=== PATIENT | male | born 1955 | race Caucasian/White ===

== ENCOUNTER 2017-02-14 08:37 | Outpatient (CLI) | payer OTHER ==
[2017-02-14] MEDS ORDERED: GADOBUTROL 7.5 MMOL/7.5 ML VIAL IVP ONE (09:45)
== END 2017-02-14 08:38 | disposition home or self-care (01) ==
DX: H49.00 Third [oculomotor] nerve palsy, unspecified eye (principal)
CPT/HCPCS: 70553; A9585

== ENCOUNTER 2017-05-30 10:07 | Outpatient (CLI) | payer OTHER ==
[2017-05-30 12:59] LABS: ALBUMIN/GLOBULIN RATIO 1.8 (1.0-2.2); BILIRUBIN,TOTAL 0.6 mg/dL (0.2-1.0); CALCIUM 8.4 mg/dL (8.5-10.3); MAGNESIUM 1.9 mg/dL (1.7-2.8); POTASSIUM 4.1 mmol/L (3.5-5.0); TOTAL PROTEIN 5.8 g/dL (6.7-8.2)
[2017-06-01 11:56] LABS: TEST RESULT REPORT (())
[2017-06-01 16:47] LABS: HDL LARGE 4202 nmol/L (4334-10815); LDL MEDIUM 164 nmol/L (167-465); LDL PARTICLE NUMBER 873 nmol/L (1016-2185); LDL PATTERN B Pattern (A); LDL PEAK SIZE 212.1 Angstrom (> OR = 218.2); LDL SMALL 205 nmol/L (123-441)
== END 2017-05-30 10:08 | disposition home or self-care (01) ==
LOC: LAB.WCP 10:07
PROVIDERS: ATTEND Specialist
DX: I25.10 Atherosclerotic heart disease of native coronary artery without angina pectoris (principal); E10.9 Type 1 diabetes mellitus without complications; I34.0 Nonrheumatic mitral (valve) insufficiency; G47.62 Sleep related leg cramps; G47.33 Obstructive sleep apnea (adult) (pediatric); R00.1 Bradycardia, unspecified
CPT/HCPCS: 36415; 80053; 81599; 82465; 83704; 83718; 83735; 84478

== ENCOUNTER 2017-10-24 08:00 | Outpatient (CLI) | payer OTHER | END 2017-10-24 08:01 | disposition home or self-care (01) | LOC: LAB.WCP 08:00 | PROVIDERS: ATTEND Urology | DX: R39.9 Unspecified symptoms and signs involving the genitourinary system (principal) | CPT/HCPCS: 36415; 84153 ==

== ENCOUNTER 2017-11-28 05:57 | Day surgery (SDC) | payer OTHER ==
[2017-11-28] MEDS ORDERED: LACTATED RINGERS 1,000 ML IV ONE (07:02)
[2017-11-28] MEDS ORDERED: MIDAZOLAM 2 MG/2 ML VIAL IVP ONE (07:20)
[2017-11-28] MEDS ORDERED: fentaNYL 100 MCG/2 ML VIAL IVP ONE (07:20)
[2017-11-28 08:37] VITALS: BP 119/67
== END 2017-11-28 05:58 | disposition home or self-care (01) ==
LOC: SDS 05:57
PROVIDERS: ATTEND Surgery
PROC: 0DJD8ZZ Inspection of Lower Intestinal Tract, Via Natural or Artificial Opening Endoscopic (ICD-10-PCS; principal; 2017-11-28 07:30)
DX: Z12.11 Encounter for screening for malignant neoplasm of colon (principal); K64.8 Other hemorrhoids; E11.9 Type 2 diabetes mellitus without complications; Z79.4 Long term (current) use of insulin; Z96.41 Presence of insulin pump (external) (internal); E78.5 Hyperlipidemia, unspecified; I25.10 Atherosclerotic heart disease of native coronary artery without angina pectoris; Z79.02 Long term (current) use of antithrombotics/antiplatelets; G47.30 Sleep apnea, unspecified
CPT/HCPCS: 45378; J7120

== ENCOUNTER 2018-04-10 11:17 | Outpatient (CLI) | payer OTHER | END 2018-04-10 11:18 | disposition home or self-care (01) | LOC: SC 11:17 | PROVIDERS: ATTEND Internal Medicine Pulmonary Disease | DX: G47.33 Obstructive sleep apnea (adult) (pediatric) (principal); G47.61 Periodic limb movement disorder | CPT/HCPCS: 99203; 99212 ==

== ENCOUNTER 2018-04-24 08:00 | Outpatient (CLI) | payer OTHER ==
[2018-04-24 13:30] LABS: ALBUMIN 3.3 g/dL (3.2-5.5); ALBUMIN/GLOBULIN RATIO 1.3 (1.0-2.2); BILIRUBIN,TOTAL 0.9 mg/dL (0.2-1.0); CALCIUM 8.7 mg/dL (8.5-10.3); CREATININE 0.9 mg/dL (0.6-1.2); MAGNESIUM 1.7 mg/dL (1.7-2.8); TOTAL PROTEIN 5.8 g/dL (6.7-8.2)
== END 2018-04-24 08:01 | disposition home or self-care (01) ==
LOC: LAB.WCP 08:00
PROVIDERS: ATTEND Specialist
DX: E78.5 Hyperlipidemia, unspecified (principal); I49.3 Ventricular premature depolarization
CPT/HCPCS: 36415; 80053; 81599; 82465; 83525; 83704; 83735; 84478

== ENCOUNTER 2018-05-13 19:42 | Outpatient (CLI) | payer OTHER | END 2018-05-13 19:43 | disposition home or self-care (01) | LOC: SC 19:42 | PROVIDERS: ATTEND Internal Medicine Pulmonary Disease | DX: G47.31 Primary central sleep apnea (principal); G47.33 Obstructive sleep apnea (adult) (pediatric); G47.61 Periodic limb movement disorder | CPT/HCPCS: 95811 ==

== ENCOUNTER 2018-06-27 11:09 | Outpatient (CLI) | payer OTHER | END 2018-06-27 11:10 | disposition home or self-care (01) | LOC: SC 11:09 | PROVIDERS: ATTEND Nurse Practitioner Family | DX: G47.33 Obstructive sleep apnea (adult) (pediatric) (principal); G47.61 Periodic limb movement disorder | CPT/HCPCS: 99212; 99215 ==

== ENCOUNTER 2018-06-27 22:45 | Outpatient (CLI) | payer OTHER | END 2018-06-27 22:46 | disposition home or self-care (01) | LOC: LAB.WCP 22:45 | PROVIDERS: ATTEND Family Medicine | DX: K52.9 Noninfective gastroenteritis and colitis, unspecified (principal) | CPT/HCPCS: 87177; 87209 ==

== ENCOUNTER 2018-07-05 14:36 | Outpatient (CLI) | payer OTHER | END 2018-07-05 14:37 | disposition home or self-care (01) | LOC: LAB.WCP 14:36 | PROVIDERS: ATTEND Physician Assistant | DX: R19.5 Other fecal abnormalities (principal) | CPT/HCPCS: 81599; 83630; 87045; 87046; 87329; 87493 ==

== ENCOUNTER 2018-08-07 10:18 | Outpatient (CLI) | payer OTHER | END 2018-08-07 10:19 | disposition home or self-care (01) | LOC: SC 10:18 | PROVIDERS: ATTEND Internal Medicine Pulmonary Disease | DX: G47.31 Primary central sleep apnea (principal) | CPT/HCPCS: 99212; 99213 ==

== ENCOUNTER 2018-08-09 08:24 | Outpatient (CLI) | payer OTHER ==
[2018-08-09 14:09] LABS: ALBUMIN 3.7 g/dL (3.2-5.5); ALBUMIN/GLOBULIN RATIO 1.9 (1.0-2.2); BILIRUBIN,TOTAL 0.9 mg/dL (0.2-1.0); CALCIUM 9.1 mg/dL (8.5-10.3); TOTAL PROTEIN 5.6 g/dL (6.7-8.2)
[2018-08-12 00:36] LABS: HDL LARGE 4178 nmol/L (3382-9376); LDL PARTICLE NUMBER 824 nmol/L (732-2035); LDL PATTERN B Pattern (A); LDL SMALL 172 nmol/L (85-473)
== END 2018-08-09 08:25 | disposition home or self-care (01) ==
LOC: LAB.WCP 08:24
PROVIDERS: ATTEND Specialist
DX: I25.10 Atherosclerotic heart disease of native coronary artery without angina pectoris (principal); E10.9 Type 1 diabetes mellitus without complications; I49.3 Ventricular premature depolarization; E78.2 Mixed hyperlipidemia
CPT/HCPCS: 36415; 80053; 81599; 82465; 83704; 83718; 83735; 84478

== ENCOUNTER 2018-12-12 13:09 | Outpatient (CLI) | payer OTHER ==
--- NOTE | 2018-12-12 16:23 | XRAY Report ---
Reason: DYSPHAGIA, UNSPECIFIED Procedure Date: 12/12/2018 Accession Number: [id number] / [id number] Procedure: FL - Modified Barium Swallow W/SP CPT Code: FULL RESULT: EXAM: MODIFIED BARIUM SWALLOW EXAM DATE: 12/12/2018 12:00 PM. CLINICAL HISTORY: Dysphagia, unspecified. COMPARISON: None. TECHNIQUE: Under the direction of speech pathology, patient swallowed various consistencies of barium under lateral fluoroscopic observation of the neck. Fluoroscopy Time: 49 seconds. Number of Images: 13. FINDINGS: Swallowing Mechanism: Normal oral phase and swallowing reflex. Airway Protection: Normal epiglottic motion. No episodes of tracheal penetration or aspiration with all consistencies of barium. Pharynx: Normal. No significant vallecular or piriform sinus contrast pooling. Other: None. IMPRESSION: Normal modified barium swallow. No aspiration identified. Given patient's symptomatology of regurgitation of food without taste of acid, recommend esophagram specifically looking for diverticulum. RADIA
== END 2018-12-12 13:10 | disposition home or self-care (01) ==
LOC: DI 13:09
PROVIDERS: ATTEND Family Medicine
DX: R13.10 Dysphagia, unspecified (principal)
CPT/HCPCS: 74230

== ENCOUNTER 2019-01-16 08:00 | Outpatient (CLI) | payer OTHER ==
--- NOTE | 2019-01-16 13:25 | XRAY Report ---
Reason: DYSPHAGIA,PHARYNGOESOPHAGEAL PHASE Procedure Date: 01/16/2019 Accession Number: [id number] / [id number] Procedure: FL - Esophogram CPT Code: FULL RESULT: EXAM: BARIUM ESOPHAGRAM EXAM DATE: 01/16/2019 09:17 AM. CLINICAL HISTORY: DYSPHAGIA,PHARYNGOESOPHAGEAL PHASE. COMPARISONS: MODIFIED SWALLOW 12/12/2018 2:14 PM. TECHNIQUE: Routine double contrast esophagram. Fluoroscopy Time: 3 minutes. Number of Images: 30. FINDINGS: Swallowing Mechanism: Normal. No tracheal aspiration or penetration. Esophageal Motility: Normal peristaltic stripping wave was visualized in the prone position. Upright, there was fine intermittent tertiary contraction distal third of the esophagus in the upright position which produced transient retention of barium contrast within the upper esophagus with reflux to the proximal third. No reflux occurred with either passive monitoring or with maneuvers. Mucosa: Normal. No ulcerations or masses. Gastroesophageal Junction: No specific abnormalities. No hernia, stricture, or significant reflux. Other: Barium pill took at least 3 minutes to pass the GE junction despite administration of 2 cups of water. IMPRESSION: Intermittent fine tertiary contractions distal third of the esophagus without appreciable esophageal mucosal abnormality. RADIA
== END 2019-01-16 08:01 | disposition home or self-care (01) ==
LOC: DI 08:00
PROVIDERS: ATTEND Internal Medicine Gastroenterology
DX: R13.14 Dysphagia, pharyngoesophageal phase (principal)
CPT/HCPCS: 74220

== ENCOUNTER 2019-01-22 14:01 | Outpatient (CLI) | payer OTHER | END 2019-01-22 14:02 | disposition home or self-care (01) | LOC: SC 14:01 | PROVIDERS: ATTEND Internal Medicine Pulmonary Disease | DX: G47.31 Primary central sleep apnea (principal) | CPT/HCPCS: 99212; 99213 ==

== ENCOUNTER 2019-01-30 08:00 | Outpatient (CLI) | payer OTHER ==
[2019-01-30 12:37] LABS: ALBUMIN 3.8 g/dL (3.2-5.5); ALBUMIN/GLOBULIN RATIO 2.4 (1.0-2.2); BILIRUBIN,TOTAL 1.3 mg/dL (0.2-1.0); CALCIUM 8.8 mg/dL (8.5-10.3); CREATININE 0.9 mg/dL (0.6-1.2); TOTAL PROTEIN 5.4 g/dL (6.7-8.2)
[2019-02-01 21:47] LABS: HDL LARGE 4312 nmol/L (3382-9376); LDL PARTICLE NUMBER 657 nmol/L (732-2035); LDL PATTERN B Pattern (A); LDL PEAK SIZE 212.1 Angstrom (> OR = 217.4); LDL SMALL 128 nmol/L (85-473)
== END 2019-01-30 23:59 | disposition home or self-care (01) ==
LOC: LAB.WCP 08:00
PROVIDERS: ATTEND Specialist
DX: I25.10 Atherosclerotic heart disease of native coronary artery without angina pectoris (principal); I49.3 Ventricular premature depolarization; E78.2 Mixed hyperlipidemia
CPT/HCPCS: 36415; 80053; 81599; 82465; 83704; 83718; 83735; 84478

== ENCOUNTER 2019-02-05 14:18 | Outpatient (CLI) | payer OTHER ==
[2019-02-06 12:30] LABS: HEPATITIS B SURFACE ANTIGEN NON-REACTIVE (NON-REACTIVE); HEPATITIS C ANTIBODY NON-REACTIVE (NON-REACTIVE)
== END 2019-02-05 14:19 | disposition home or self-care (01) ==
LOC: LAB.WCP 14:18
PROVIDERS: ATTEND Family Medicine
DX: R74.8 Abnormal levels of other serum enzymes (principal)
CPT/HCPCS: 36415; 86317; 86704; 86709; 86803; 87340

== ENCOUNTER 2019-02-08 20:48 | Outpatient (CLI) | payer OTHER ==
--- NOTE | 2019-02-09 10:10 | Ultrasound Report ---
Reason: ELEVATED LIVER ENZYMES Procedure Date: 02/08/2019 Accession Number: [id number] / [id number] Procedure: US - Abdomen Complete CPT Code: FULL RESULT: EXAM: ABDOMEN ULTRASOUND EXAM DATE: 02/08/2019 09:39 PM. CLINICAL HISTORY: Elevated liver enzymes. COMPARISON: None. TECHNIQUE: Real-time scanning was performed with static images obtained. FINDINGS: Liver: Increased hepatic echogenicity limits evaluation of underlying parenchyma. Right lobe of the liver measures at least 15 cm. Main portal vein flow: Hepatopetal. Gallbladder: Normal. No stones, wall thickening, or sonographic Shane's sign. Biliary System: Common bile duct measures 4 mm. No intrahepatic or extrahepatic ductal dilatation. Pancreas: Visualized portion is unremarkable. Kidneys: Right: 10.8 cm longitudinally. Normal. No contour-deforming mass, stones, or hydronephrosis. Left: 10.7 cm longitudinally. Normal. No contour-deforming mass, stones, or hydronephrosis. Spleen: 11.2 cm. Normal in size and echotexture. Aorta and Inferior Vena Cava: Mild atherosclerotic disease of the aorta is detected with no aneurysm in the visualized portions. IVC appears grossly unremarkable. Other: None. IMPRESSION: Echogenic liver parenchyma which is nonspecific but can be seen with hepatic steatosis. RADIA
== END 2019-02-08 20:49 | disposition home or self-care (01) ==
LOC: DI 20:48
PROVIDERS: ATTEND Family Medicine
DX: R74.8 Abnormal levels of other serum enzymes (principal); I70.0 Atherosclerosis of aorta
CPT/HCPCS: 76700

== ENCOUNTER 2019-02-14 10:29 | Outpatient (CLI) | payer OTHER | END 2019-02-14 10:30 | disposition home or self-care (01) | LOC: LAB.WCP 10:29 | PROVIDERS: ATTEND Family Medicine | DX: Z12.5 Encounter for screening for malignant neoplasm of prostate (principal) | CPT/HCPCS: 36415; 84153 ==

== ENCOUNTER 2019-03-27 14:38 | Outpatient (CLI) | payer OTHER ==
[2019-03-27 19:15] LABS: ALBUMIN 3.8 g/dL (3.2-5.5); ALBUMIN/GLOBULIN RATIO 1.4 (1.0-2.2); BILIRUBIN,TOTAL 0.9 mg/dL (0.2-1.0); CALCIUM 9.2 mg/dL (8.5-10.3); CREATININE 1.1 mg/dL (0.6-1.2); TOTAL PROTEIN 6.5 g/dL (6.7-8.2)
== END 2019-03-27 14:39 | disposition home or self-care (01) ==
LOC: LAB.WCP 14:38
PROVIDERS: ATTEND Family Medicine
DX: B35.1 Tinea unguium (principal); Z79.899 Other long term (current) drug therapy
CPT/HCPCS: 36415; 80053

== ENCOUNTER 2019-04-05 08:00 | Outpatient (CLI) | payer OTHER | END 2019-04-05 23:59 | disposition home or self-care (01) | LOC: LAB.WCP 08:00 | PROVIDERS: ATTEND Family Medicine | DX: N39.0 Urinary tract infection, site not specified (principal) | CPT/HCPCS: 87086 ==

== ENCOUNTER 2019-04-13 13:10 | Outpatient (CLI) | payer OTHER ==
[2019-04-13 18:51] LABS: BILIRUBIN,URINE NEGATIVE (NEGATIVE); GLUCOSE, URINE (UA) NEGATIVE (NEGATIVE); KETONES,URINE (UA) NEGATIVE (NEGATIVE); LEUKOCYTE ESTERASE, URINE NEGATIVE (NEGATIVE); NITRITE,URINE NEGATIVE (NEGATIVE); OCCULT BLOOD,URINE NEGATIVE (NEGATIVE); PROTEIN,URINE NEGATIVE (NEGATIVE); UROBILINOGEN,URINE 0.2 (NORMAL) E.U./dL (NORMAL)
[2019-04-13 19:00] LABS: CLARITY,URINE CLOUDY (CLEAR)
[2019-04-13 19:07] LABS: AMORPHOUS SEDIMENT,UR Marked /LPF; BACTERIA,URINE None Seen /HPF (None Seen); RBC,URINE None Seen /HPF (0-5); SQUAMOUS EPITHELIAL CELL,UR NONE SEEN (<= Few)
== END 2019-04-13 23:59 | disposition home or self-care (01) ==
LOC: LAB.R 13:10
PROVIDERS: ATTEND Family Medicine
DX: N39.0 Urinary tract infection, site not specified (principal)
CPT/HCPCS: 81001; 81003; 87086

== ENCOUNTER 2019-04-25 08:00 | Outpatient (CLI) | payer OTHER | END 2019-04-25 23:59 | disposition home or self-care (01) | LOC: LAB.R 08:00 | PROVIDERS: ATTEND Family Medicine | DX: K52.9 Noninfective gastroenteritis and colitis, unspecified (principal) | CPT/HCPCS: 81599; 83630; 87045; 87046; 87177; 87209; 87329; 87493 ==

== ENCOUNTER 2019-06-12 15:00 | Outpatient (CLI) | payer OTHER | END 2019-06-12 23:59 | disposition home or self-care (01) | LOC: LAB.R 15:00 | PROVIDERS: ATTEND Family Medicine | DX: N39.0 Urinary tract infection, site not specified (principal) | CPT/HCPCS: 87077; 87086; 87181 ==

== ENCOUNTER 2019-06-19 08:00 | Outpatient (CLI) | payer OTHER | END 2019-06-19 23:59 | disposition home or self-care (01) | LOC: LAB.R 08:00 | PROVIDERS: ATTEND Family Medicine | DX: N39.0 Urinary tract infection, site not specified (principal) | CPT/HCPCS: 87086 ==

== ENCOUNTER 2019-08-17 07:00 | Outpatient (CLI) | payer OTHER ==
[2019-08-17 14:16] LABS: BILIRUBIN,TOTAL 0.7 mg/dL (0.2-1.0); CALCIUM 8.7 mg/dL (8.5-10.3)
[2019-08-17 14:17] LABS: ALBUMIN 3.7 g/dL (3.2-5.5); ALBUMIN/GLOBULIN RATIO 1.8 (1.0-2.2); TOTAL PROTEIN 5.8 g/dL (6.7-8.2)
[2019-08-25 14:32] LABS: HDL LARGE 4647 nmol/L (3382-9376); LDL PARTICLE NUMBER 516 nmol/L (732-2035); LDL PATTERN B Pattern (A); LDL PEAK SIZE 213.9 Angstrom (> OR = 217.4); LDL SMALL 93 nmol/L (85-473)
== END 2019-08-17 23:59 | disposition home or self-care (01) ==
LOC: LAB.WCP 07:00
PROVIDERS: ATTEND Specialist
DX: E78.2 Mixed hyperlipidemia (principal)
CPT/HCPCS: 36415; 80053; 80061; 81599; 83704

== ENCOUNTER 2019-10-22 09:19 | Outpatient (CLI) | payer OTHER ==
[2019-10-22 12:21] LABS: ALBUMIN 3.5 g/dL (3.2-5.5); ALBUMIN/GLOBULIN RATIO 1.7 (1.0-2.2); BILIRUBIN,TOTAL 0.9 mg/dL (0.2-1.0); CALCIUM 8.6 mg/dL (8.5-10.3); CREATININE 0.9 mg/dL (0.6-1.2); TOTAL PROTEIN 5.6 g/dL (6.7-8.2)
[2019-10-25] LABS: HDL LARGE 3825 nmol/L (3382-9376); LDL PARTICLE NUMBER 920 nmol/L (732-2035); LDL PATTERN B Pattern (A); LDL PEAK SIZE 214.4 Angstrom (> OR = 217.4); LDL SMALL 217 nmol/L (85-473)
== END 2019-10-22 23:59 | disposition home or self-care (01) ==
LOC: LAB.WCP 09:19
PROVIDERS: ATTEND Specialist
DX: E78.2 Mixed hyperlipidemia (principal); R94.5 Abnormal results of liver function studies
CPT/HCPCS: 36415; 80053; 80061; 81599; 83704

== ENCOUNTER 2020-01-22 16:39 | Outpatient (CLI) | payer MEDICARE, OTHER ==
--- NOTE | 2020-01-22 10:37 | SLEEP CARE CONSULTATION ---
Information from patient questionnaire entered by Corina Hernandez. I have reviewed and concur with the information entered by Corina Hernandez. This document represents the service I personally performed and the decisions made by me, Anil Brower MD, [facility]. History of Present Illness Previous diagnosis: Severe, Obstructive Sleep Apnea-Hypopnea Syndrome, Central Sleep Apnea-Hypopnea Syndrome AHI: 44.1 Reason for follow up: annual Equipment type: ASV Equipment obtained from: [facility] Prior sleep studies: Yes HPI additional information: To minimize the risk of COVID-19 exposure, the patient has requested and consented to this telephone visit. The patient also agrees to having his insurance billed. HPI: Mr. Lunsford returned today for follow up of BiPAP ASV therapy. He was diagnosed to have severe central sleep apnea-hypopnea syndrome. The patient went to [facility] for his new BiPAP ASV. He now wears a ResMed AirTouch F-20 full face mask. He reports using the device nightly and all through the night. The compliance report shows usage in 159 nights out of the past 180 nights, averaging 4.5 (was 5.6 last year) hours a night. He complained of no particular problem with the device such as soreness on the face, dry nose, epistaxis, nasal congestion or headache. He thinks that the pressure setting is comfortable. On the BiPAP therapy he notices improvement in his sleep quality, and that he wakes up feeling fresher in the morning and more awake/alert during the day. The [place] Sleepiness Scale score 6. His notices no snore at all. The average residual AHI is 15.4 (was 18 last year); and average time in large leak per day is 28 seconds. CPAP Compliance Data - Data Reviewed with Patient Average duration of nightly device use: 4H 29M Compliance rate %: 48.3 Current pressure setting (cmH2O): 10/12 Humidity settin Heated hose settin Average residual AHI: 15.4 Average large leak: 28S Subjective Initial [place] Sleepiness Scale score: 8 Allergies and Home Medications Drug allergies reviewed: Yes Home medication list reviewed: Yes Review of Systems Review of systems same as previous: Yes Physical Exam Height: 5 ft 10 in Impression and Plan IMPRESSION: 1. Central Sleep Apnea-Hypopnea Syndrome, severe, with the patient doing well on BiPAP ASV therapy. He has good compliance and significant clinical improvement. The current pressure appears partially effective but comfortable. Overall, he is very satisfied with treatment and plans to continue with it long-term. Because most of his residual apneas are obstructive, I will raise the EPAP and IPAP max settings. PLAN: 1. Continue with the BiPAP ASV with IPAP max at 20 and EPAP max at 15 cmH2O. 2. Return in one year for follow up or earlier if there is any problem with the treatment. Visit Type: Telehealth Phone Location of Provider: Home Patient agrees and consents to this telehealth visit type: Yes Time Spent with Patient (minutes): 10 Provider Statement: I spent 100% of the Telehealth Phone Call with the patient with greater than 50% spent counseling the patient and coordination of care.
== END 2020-01-22 16:40 | disposition home or self-care (01) ==
LOC: SC 16:39
PROVIDERS: ATTEND Internal Medicine Pulmonary Disease
DX: G47.31 Primary central sleep apnea (principal)

== ENCOUNTER 2021-02-09 13:06 | Outpatient (CLI) | payer MEDICARE, OTHER ==
--- NOTE | 2021-02-09 14:21 | SLEEP CARE CONSULTATION ---
Information from patient questionnaire entered by Megan Wall. I have reviewed and concur with the information entered by Megan Wall. This document represents the service I personally performed and the decisions made by me, Anil Brower MD, [facility]. History of Present Illness Service Date and Time: 02/09/2021 1306 Previous diagnosis: Severe, Obstructive Sleep Apnea-Hypopnea Syndrome, Central Sleep Apnea-Hypopnea Syndrome AHI: 44.1 Reason for follow up: annual (Last seen 01/2020) Equipment type: ASV Equipment obtained from: [employer] Mask style: Full face Prior sleep studies: Yes Year and Where: 2007 [facility] additional information: HPI: Mr. Lunsford returned with his today for follow up of BiPAP ASV therapy. He was diagnosed to have severe central sleep apnea-hypopnea syndrome. [employer] is his durable medical supplier. He now wears a ResMed AirTouch F-20 full face mask. He reports using the device nightly and almost all night. The compliance report shows usage in 167 nights out of the past 180 nights, averaging 5.6 5ours a night. He complained of no particular problem with the device such as soreness on the face, dry nose, epistaxis, nasal congestion or headache. He thinks that the pressure setting is comfortable. On the BiPAP therapy he notices improvement in his sleep quality, and that he wakes up feeling fresher in the morning and more awake/alert during the day. The [place] Sleepiness Scale score 8 (was 6). His notices no snore at all. The average residual AHI is 8.8 (was 18 2 years ago); and average time in large leak per day is 1 minute. CPAP Compliance Data - Data Reviewed with Patient Average duration of nightly device use: 5 h 27 min Compliance rate %: 68.3 Current pressure setting (cmH2O): 20/15 Humidity settin Heated hose settin Average residual AHI: 8.8 Average large leak: 1 min 1 sec Subjective Missed days of use due to: reports: mask issues, travel Current pressure setting perceived as: comfortable Initial [place] Sleepiness Scale score: 12 (in 2018) Current [place] Sleepiness Scale score: 8 Allergies and Home Medications Drug allergies reviewed: Yes Home medication list reviewed: Yes Review of Systems Review of systems same as previous: Yes Physical Exam Height: 5 ft 10 in Weight: 165 lb Body Mass Index: 23.6 BMI Classification: Healthy weight Impression and Plan IMPRESSION: 1. Central Sleep Apnea-Hypopnea Syndrome, severe, with the patient doing well on BiPAP ASV therapy. He has good compliance and significant clinical improvement. The current pressure appears more effective and comfortable. Overall, he is very satisfied with treatment and plans to continue with it long-term. No adjustment is necessary today. PLAN: 1. Continue with the BiPAP ASV at the current setting. 2. Try [employer] DreamWear full face mask and ResMed F30 full face mask. 3. Return in one year for follow up or earlier if there is any problem with the treatment. Visit Type: In Office Other Participants: Spouse/Significant Other Time Spent with Patient (minutes): 15 Provider Statement: I spent 100% of the Face to Face Visit with the patient with greater than 50% spent counseling the patient and coordination of care.
== END 2021-02-09 13:07 | disposition home or self-care (01) ==
LOC: SC 13:06
PROVIDERS: ATTEND Internal Medicine Pulmonary Disease
DX: G47.31 Primary central sleep apnea (principal)
CPT/HCPCS: 99212; G0463

== ENCOUNTER 2022-03-01 13:14 | Outpatient (CLI) | payer MEDICARE, OTHER ==
[2022-03-01 14:07] VITALS: BP 148/96
--- NOTE | 2022-03-01 14:07 | SLEEP CARE CONSULTATION ---
Information from patient questionnaire entered by Osmany Landeros MA. I have reviewed and concur with the information entered by Osmany Landeros MA. This document represents the service I personally performed and the decisions made by me, Anil Brower MD, [facility]. History of Present Illness Service Date and Time: 03/01/2022 1314 Previous diagnosis: Severe, Obstructive Sleep Apnea-Hypopnea Syndrome, Central Sleep Apnea-Hypopnea Syndrome AHI: 44.1 Reason for follow up: annual Equipment type: ASV Equipment obtained from: [facility] Mask style: Full face Prior sleep studies: Yes Year and Where: 2007 [facility] additional information: Mr. Lunsford returned today for follow up of BiPAP ASV therapy. He was diagnosed to have severe central sleep apnea-hypopnea syndrome. The patient gets his supplies from [employer]. He now wears a ResMed AirTouch F-30 full face mask. He reports using the device nightly and all through the night. The compliance report shows usage in 250 nights out of the past 365 nights, averaging 5.3 (was 5.6 last year) hours a night. Between August and January, he went back to use his old BiPAP ASV. He complained of no particular problem with the device such as soreness on the face, dry nose, epistaxis, nasal congestion or headache. He thinks that the pressure setting is comfortable. On the BiPAP therapy he notices improvement in his sleep quality, and that he wakes up feeling fresher in the morning and more awake/alert during the day. The [place] Sleepiness Scale score 6. His notices no snore at all. The average residual AHI is 6.8 (was 15.4 last year); and average time in large leak per day is 3 minutes and 37 seconds. Sleep Study - Results Prior sleep studies: Yes Year and Where: 2007 [facility] Subjective Initial [place] Sleepiness Scale score: 12 (in 2017) Current [place] Sleepiness Scale score: 6 (2021) Allergies and Home Medications Drug allergies reviewed: Yes Home medication list reviewed: Yes Allergy and home medication list: Allergies clindamycin Allergy (Verified 05/01/14 14:16) Rash spironolactone Allergy (Verified 05/01/14 14:16) Rash Review of Systems Review of systems same as previous: Yes Physical Exam Vital signs obtained and entered by: Aisha LANDEROS CMA AASOILA Blood Pressure: 148/96 (PULSE 89, RESP18, RIGHT) Cuff size: wrist Heart Rate: 84 O2 Saturation: 97 Height: 5 ft 10 in Weight: 157 lb Body Mass Index: 22.5 BMI Classification: Healthy weight Impression and Plan IMPRESSION: 1. Central Sleep Apnea-Hypopnea Syndrome, severe, with the patient doing well on BiPAP ASV therapy. He has good compliance and significant clinical improvement. The current pressure appears more effective this year. Overall, he is very satisfied with treatment and plans to continue with it long- term. PLAN: 1. Continue with the BiPAP ASV with IPAP max at 20 and EPAP 10 15; pressure 3-7 cmH2O. 2. Wait for the replacement device from [employer]. 3. Try a Respironics DreamWear full face mask 4. Return for follow up in a year or earlier if there is any problem. Follow up with Sleep Care in: 1 year Time Spent with Patient (minutes): 15
== END 2022-03-01 13:15 | disposition home or self-care (01) ==
LOC: SC 13:14
PROVIDERS: ATTEND Internal Medicine Pulmonary Disease
DX: G47.31 Primary central sleep apnea (principal)
CPT/HCPCS: 99212; G0463

== ENCOUNTER 2022-09-06 13:05 | Outpatient (CLI) | payer MEDICARE, OTHER | END 2022-09-06 13:06 | disposition short-term general hospital (02) | LOC: EMS 13:05 | DX: I95.1 Orthostatic hypotension (principal) | CPT/HCPCS: A0425; A0427 ==

== ENCOUNTER 2023-03-03 11:28 | Outpatient (CLI) | payer MEDICARE, OTHER ==
--- NOTE | 2023-03-03 12:01 | Sleep Patient Instructions ---
Sleep Center Visit Summary - Patient Visit Information Reason for Visit: Annual followup - Patient Instructions Additional Instructions: You will continue with BiPAP therapy with pressure set at EPAP 10-20, IPAP 15 cmH2O with 3-7 cmH2O pressure support. A supply prescription will be updated with your DME. Please follow up with the sleep care office in 1 year. - Clinic Information Contact: [facility] [address] [place] [address] [email or web address] T: [phone]
--- NOTE | 2023-03-03 12:07 | SLEEP CARE CONSULTATION ---
Information from patient questionnaire entered by Courtney Ngo. I have reviewed and concur with the information entered by Courtney Ngo. This document represents the service I personally performed and the decisions made by me, Citlalli Cuevas ARNP. History of Present Illness Service Date and Time: 03/03/2023 1128 Previous diagnosis: Severe, Obstructive Sleep Apnea-Hypopnea Syndrome, Central Sleep Apnea-Hypopnea Syndrome AHI: 44.1 (in 2007) Reason for follow up: annual (LAST SEEN 02/2022) Accompanied by: Spouse Equipment type: BiPAP (GUERR[place] SD CARD NEEDED) Equipment obtained from: Other ([facility]; getting supplies) Mask style: Full face Mask brand: Resmed (AirTouch F20) Backup mask available: Yes (old mask) Last cushion change: 2 weeks Prior sleep studies: Yes Year and Where: 2007 [facility] HPI additional information: LESLI SANCHEZ was diagnosed to have severe, AHI 44.1, obstructive/central sleep apnea-hypopnea syndrome and returned today for BIPAP therapy annual follow-up. Sleep Study - Results Prior sleep studies: Yes Year and Where: 2007 [facility] CPAP Compliance Data - Data Reviewed with Patient Average duration of nightly device use: 4 hours 27 minutes Compliance rate %: 56.7 (24/30 days used; 90 days 61.1% compliant) Current pressure setting (cmH2O): 10-15 EPAP, IPAP 20; pressure support 3-7 Average residual AHI: 3.9 Central apnea: 0.6 Obstructive apnea: 0.7 Subjective Missed days of use due to: reports: illness Patient concerns: reports: mask leak noise (just needs adjustment). denies: aerophagia, mask discomfort, air blowing in eyes, condensation in mask/hose, nasal congestion, dry mouth, nose, throat, epistaxis Observed to snore while using device: No Current pressure setting perceived as: comfortable On therapy, patient: reports: sleeping better, awakening more refreshed, being more awake and alert during the day, more rested overall. denies: drowsiness while driving Initial [place] Sleepiness Scale score: 12 (in 2018) Current [place] Sleepiness Scale score: 9 (03/03/23) Allergies and Home Medications Known drug allergies: Yes (as listed) Drug allergies reviewed: Yes Home medication list reviewed: Yes (Iron; starting infusions on Tuesday) Allergy and home medication list: Allergies clindamycin Allergy (Verified 03/02/23 15:22) Rash spironolactone Allergy (Verified 03/02/23 15:22) Rash Review of Systems Review of systems same as previous: No (during angiogram, artery scraped and bleeding; leg surgery) Physical Exam Vital signs obtained and entered by: COURTNEY Bird MA Blood Pressure: 110/60 (LEFT ARM) Cuff size: regular Heart Rate: 83 O2 Saturation: 99 Height: 5 ft 10 in Weight: 154 lb 6.4 oz Body Mass Index: 22.1 BMI Classification: Normal Impression and Plan 1. Obstructive and Central Sleep Apnea-Hypopnea Syndrome, severe, with fair treatment compliance and good apnea control. On BIPAP therapy, the patient has better sleep quality and is more rested overall. [] Patient's apnea severity and rationale for treatment to reduce apnea, improve sleep quality and reduce cardiovascular and cerebrovascular events was reviewed. I also reviewed the benefit of consistent device use of BIPAP for hypertension, cardiac disease and diabetes. * Continue BIPAP pressure at IPAP max 20, EPAP 10-15 cmH2O with 3-7 cmH2O pressure support * Update supplies * Notify me if snoring with mask or feeling that the pressure is too much or too little * Attempt to lose weight * Call this office if any problems using BIPAP * Return for follow up in 1 year, or sooner if concerns arise Counseling Topics: Spare mask Visit Type: In Office Other Participants: Spouse/Significant Other Time Spent with Patient (minutes): 23 Provider Statement: I spent 100% of the Face to Face Visit with the patient with greater than 50% spent counseling the patient and coordination of care.
[2023-03-03 12:09] VITALS: BP 110/60
== END 2023-03-03 11:29 | disposition home or self-care (01) ==
LOC: SC 11:28
PROVIDERS: ATTEND Nurse Practitioner Family
DX: G47.31 Primary central sleep apnea (principal); G47.33 Obstructive sleep apnea (adult) (pediatric)
CPT/HCPCS: 99213; G0463; 99212

== ENCOUNTER 2023-11-26 20:54 | Outpatient (CLI) | payer MEDICARE, OTHER | END 2023-11-26 20:55 | disposition short-term general hospital (02) | LOC: EMS 20:54 | DX: E11.649 Type 2 diabetes mellitus with hypoglycemia without coma (principal); Z79.4 Long term (current) use of insulin; I45.10 Unspecified right bundle-branch block; Z96.41 Presence of insulin pump (external) (internal) | CPT/HCPCS: A0425; A0427 ==

== ENCOUNTER 2024-03-06 12:43 | Outpatient (CLI) | payer MEDICARE, OTHER ==
--- NOTE | 2024-03-06 13:33 | Sleep Patient Instructions ---
Sleep Center Visit Summary - Patient Visit Information Reason for Visit: Annual follow-up - Patient Instructions Additional Instructions: You will continue with BiPAP therapy with pressure. A supply prescription will be updated with your DME. Please follow up with the sleep care office in 1 year. - Clinic Information Contact: [facility] [address] [place] [address] [email or web address] T: [phone]
--- NOTE | 2024-03-06 13:38 | SLEEP CARE CONSULTATION ---
Information from patient questionnaire entered by Ana Maria Ngo. I have reviewed and concur with the information entered by Ana Maria Ngo. This document represents the service I personally performed and the decisions made by me, Citlalli Cuevas ARNP. History of Present Illness Service Date and Time: 03/06/2024 1243 Previous diagnosis: Severe, Obstructive Sleep Apnea-Hypopnea Syndrome, Central Sleep Apnea-Hypopnea Syndrome AHI: 44.1 (in 2007) Reason for follow up: annual (LAST SEEN 02/2023) Accompanied by: Spouse (Maki) Equipment type: BiPAP (GUERRERO BiPAP recertified; SD CARD NEEDED) Equipment obtained from: Other ([facility]; getting supplies) Mask style: Full face Mask brand: Resmed (AirTouch F20, medium) Backup mask available: Yes Last cushion change: 1 month Prior sleep studies: Yes Year and Where: 2007 [facility] HPI additional information: LESLI SANCHEZ was diagnosed to have severe, AHI 44.1, obstructive sleep apnea- hypopnea syndrome and returned today for CPAP therapy annual follow-up. Sleep Study - Results Prior sleep studies: Yes Year and Where: 2007 [facility] CPAP Compliance Data - Data Reviewed with Patient Average duration of nightly device use: 5 hours 48 mins Compliance rate %: 78.9 (175/180 days used) Current pressure setting (cmH2O): 20/10-15 with ps 3-7 Average residual AHI: 2.9 Average large leak: 51 secs Subjective Missed days of use due to: reports: illness (upper resp illness) Patient concerns: reports: mask leak noise (occasional). denies: aerophagia, mask discomfort, air blowing in eyes, condensation in mask/hose, nasal congestion, dry mouth, nose, throat, epistaxis Observed to snore while using device: No Current pressure setting perceived as: comfortable On therapy, patient: reports: sleeping better, awakening more refreshed, being more awake and alert during the day, more rested overall. denies: drowsiness while driving Initial [place] Sleepiness Scale score: 12 (in 2018) Current [place] Sleepiness Scale score: 11 Allergies and Home Medications Known drug allergies: Yes (as listed) Drug allergies reviewed: Yes Home medication list reviewed: Yes (updated in EMR) Allergy and home medication list: Allergies clindamycin Allergy (Verified 03/01/24 12:35) Rash levofloxacin Allergy (Verified 03/06/24 13:15) Hallucinations spironolactone Allergy (Verified 03/01/24 12:35) Rash Home Medications Clopidogrel [Plavix] 150 mg PO QDDINNER 05/01/14 [History] Magnesium Chloride [Slow-Mag] 64 mg PO BID 05/01/14 [History] Metoprolol Tartrate 25 mg PO DAILY 05/01/14 [History] Nitroglycerin [Nitrostat] 0.4 mg SL Q5MIN PRN 05/01/14 [History] Hill[place]-3 Fatty Acids/Fish Oil [Fish Oil 1,000 mg Capsule] 1 each PO BID 05/01/14 [History] Rosuvastatin Calcium [Crestor] 20 mg PO QPM 05/01/14 [History] lisinopriL [Lisinopril] 5 mg PO QDDINNER 05/01/14 [History] Subcutaneous Insulin Pump [Insulin Pump] 60 units SQ DAILY 01/20/15 [History] Tamsulosin HCl [Flomax] 0.4 mg PO DAILY 11/25/17 [History] metFORMIN [Glucophage] 1,000 mg PO BID 11/25/17 [History] B12 Active See Rx Instructions .ROUTE .COMPLEX 03/06/24 [History] Cetirizine See Rx Instructions .ROUTE .COMPLEX 03/06/24 [History] Cilostazol See Rx Instructions .ROUTE .COMPLEX 03/06/24 [History] Donepezil HCl See Rx Instructions .ROUTE .COMPLEX 03/06/24 [History] Ezetimibe See Rx Instructions .ROUTE .COMPLEX 03/06/24 [History] Florajen Acidophilus See Rx Instructions .ROUTE .COMPLEX 03/06/24 [History] Jardiance See Rx Instructions .ROUTE .COMPLEX 03/06/24 [History] Memantine HCl See Rx Instructions .ROUTE .COMPLEX 03/06/24 [History] Multivit with Iron,Minerals See Rx Instructions .ROUTE .COMPLEX 03/06/24 [History] Vitamin D3 See Rx Instructions .ROUTE .COMPLEX 03/06/24 [History] Review of Systems Review of systems same as previous: No (Artery Bypass, left leg 2021) Physical Exam Vital signs obtained and entered by: Citlalli Guerrero NP Blood Pressure: 111/66 Cuff size: regular (right upper arm) Heart Rate: 51 O2 Saturation: 99 Height: 5 ft 10 in Weight: 160 lb 6.4 oz Body Mass Index: 23.0 BMI Classification: Normal Impression and Plan 1. Obstructive Sleep Apnea-Hypopnea Syndrome, severe, with good treatment compliance and good apnea control. On BiPAP therapy, the patient has better sleep quality and is more rested overall. Patient has significant improvement of their sleep apnea and is satisfied with current CPAP therapy. Patient denies problems with oral dryness, nasal congestion, epistaxis, skin irritation or aerophagia. Patient's apnea severity and rationale for treatment to reduce apnea, improve sleep quality and reduce cardiovascular and cerebrovascular even ts was reviewed. I also reviewed the benefit of consistent device use of BiPAP for hypertension, cardiac disease, diabetes. * Continue BiPAP pressure at 20/10-15 cmH2O with 3-7 cmH2O pressure support * Update supply prescription * Notify me if snoring with mask or feeling that the pressure is too much or too little * Call this office if any problems using BIPAP * Return for follow up in [12 months], or sooner if concerns arise Counseling Topics: Spare mask Prescriptions: Device supplies Follow up with Sleep Care in: 1 year Visit Type: In Office Time Spent with Patient (minutes): 32 Provider Statement: I spent 100% of the Face to Face Visit with the patient with greater than 50% spent counseling the patient and coordination of care.
[2024-03-06 13:39] VITALS: BP 111/66; O2SAT 99
== END 2024-03-06 12:44 | disposition home or self-care (01) ==
LOC: SC 12:43
PROVIDERS: ATTEND Nurse Practitioner Family
DX: G47.33 Obstructive sleep apnea (adult) (pediatric) (principal)
CPT/HCPCS: 99213; G0463; 99212